=== PATIENT | male | born 1975 | race Caucasian/White ===

== ENCOUNTER 2018-02-17 06:18 | Day surgery (SDC) | payer OTHER ==
[2018-02-07 15:15] VITALS: BMI 28.3
[2018-02-17] MEDS ORDERED: DEXAMETHASONE SOD PHOSPHATE/PF 10 MG/ML SDV ONE (07:31)
[2018-02-17] MEDS ORDERED: MIDAZOLAM HCL 2 MG/2 ML SINGLE DOSE VIAL ONE (07:31)
[2018-02-17] MEDS ORDERED: MEPIVACAINE HCL/PF 15 MG/ML ML ONE (07:31)
[2018-02-17] MEDS ORDERED: ROPIVACAINE HCL 0.5% 30ML VIAL ONE (07:32)
[2018-02-17] MEDS ORDERED: BENZOIN/ALOE VERA/STORAX/TOLU 58 ML BOTTLE ONE (07:38)
[2018-02-17] MEDS ORDERED: SUCCINYLCHOLINE CHLORIDE 200 MG/10 ML VIAL ONE (07:48)
[2018-02-17] MEDS ORDERED: PROPOFOL 20 ML ONE ×5 (07:48→09:14)
[2018-02-17] MEDS ORDERED: ONDANSETRON 4 MG/2 ML VIAL ONE (08:03)
[2018-02-17] MEDS ORDERED: DEXAMETHASONE SOD PHOSPHATE 4 MG/1 ML VIAL ONE (08:03)
[2018-02-17] MEDS ORDERED: ceFAZolin SODIUM 1 GM VIAL ONE (08:03)
[2018-02-17] MEDS ORDERED: ONDANSETRON 4 MG/2 ML VIAL IVPUSH PRN (10:32)
[2018-02-17] MEDS ORDERED: oxyCODONE HCL 5 MG TABLET PO PRN ×2 (10:32)
--- NOTE | 2018-02-17 10:37 | PN ---
Progress Note (short form) - Note Progress Note: 42M s/p RIGHT shoulder open Anselmo procedure, Neer Decompression, & rotator cuff repair POD #0. -Pain control: Meloxicam & oxycodone PRN. -Incentive spirometry. -No chemical DVT PPx. -RUE sling. -No RIGHT shoulder ROM. -Daily RIGHT elbow, wrist & hand ROM. -Keep dressing clean & dry. -f/u in [facility] [place] [facility] on 02/23/2018; call for appointment; . Aaron Arroyo MD (Orthopaedic Surgery).
--- NOTE | 2018-02-17 10:38 | OP ---
Operative Note - Note: Operative Date: 02/17/18 Pre-Operative Diagnosis: Right shoulder impingement syndrome Operation: RIGHT shoulder open: 1. Anselmo procedure. 2. Neer Decompression. 3. Rotator cuff repair Findings: Partial thickness, bursal-sided rotator cuff tear Post-Operative Diagnosis: Same as Pre-op Surgeon: Aaron Arroyo Lead Military Analyst: Brijesh Arroyo Anesthesiologist/ACUTE CARE NURSE PRACTITIONER: Brown Vargas Anesthesia: General (Interscalene block) Estimated Blood Loss (mls): 30 Fluid Volume Replaced (mls): 600 Operative Report Dictated: Yes
[2018-02-17] MEDS ORDERED: LACTATED RINGERS SOLUTION 1,000 ML IV SCH (10:45)
--- NOTE | 2018-02-17 10:58 | OP ---
DATE OF OPERATION: DATE OF DICTATION: 02/17/2018 SURGEON: Aaron Arroyo MD BUSINESS DATABASE ANALYST: Brijesh Arroyo MD ANESTHESIA: General. PREOPERATIVE DIAGNOSIS: Right rotator cuff tear with impingement syndrome, shoulder. POSTOPERATIVE DIAGNOSIS: Right rotator cuff tear with impingement syndrome, shoulder. SURGICAL PROCEDURE: 1. Excision arthroplasty clavicle. 2. Acromioplasty and coracoacrominal ligament transection. 3. Repair of chronic rotator cuff tear. POSITION: Beach chair [place] position. DESCRIPTION OF PROCEDURE: The right upper extremity was prepped routinely with Betadine scrub solution, wiped off with alcohol, DuraPrep applied. A free drape was applied. The scalene block had been performed prior to this accordingly. The line between the tip of the coracoid and tip of the acromion was identified. Incision made exactly in this line. Hemostasis was achieved down to the layer of muscle of deltoid. The superior surface of the clavicle was freed of soft tissue, a Holmann placed behind this and a Holmann placed anteriorly to lift the AC joint appropriately. The AC joint was readily noted and incised using a 15 blade. Using a beveled saw cut, the excision arthroplasty was then completed taking out about a cm of distal lateral clavicle. All soft tissue left behind just the bony component removed. At that point, the deltoid muscle was identified. Placing a Holmann under the deltoid so there was minimal splitting of the deltoid, the deltoid was lifted. A peanut was utilized to develop a plane superficial to the CA ligament. CA ligament from distal to proximal was identified. A small incision was made into this ligament with a 15 blade and a Redmond freer type instrument placed under the ligament and the ligament transected entirely along its entire length from the distal border to the proximal band adherent tissue right into the deep aspect of the shoulder joint. This enabled access to the subacromial space, which was very tight. A blunt Holmann was placed in the humeral head and the tip on the undersurface of the acromion. This kept the humeral head and rotator cuff out of harm's way, and an oscillating saw was utilized to excise a small wedge of very prominent acromion, which was digging into the appropriate soft tissue mass covering the humeral head. A small wafer of tissue was then resected on the undercut surface as well. Once this had been performed, the tissues were lavaged and the rotator cuff identified. A small tear was noted. This was a firmly degenerative-type tear. Some of the tissue was excised and then two 2-0 Vicryl sutures were placed to give a watertight seal to the rotator cuff. The wound was thoroughly lavaged. Closure as follows: Deltoid and capsule 1-0 Vicryl, subcutaneous 1-0 and 2-0 Vicryl, skin 3-0 Monocryl with Steri-Strips. No complications. MD DAGO [id number]
[2018-02-17 12:04] VITALS: TEMP 97.6
[2018-02-17 12:06] VITALS: BP 123/72; PULSE 55
== END 2018-02-17 12:05 | disposition home or self-care (01) ==
LOC: FASU 06:18
PROVIDERS: ATTEND Orthopaedic Surgery Orthopaedic Surgery of the Spine
PROC: 0RBG0ZZ Excision of Right Acromioclavicular Joint, Open Approach (ICD-10-PCS; 2018-02-17)
PROC: 0PB90ZZ Excision of Right Clavicle, Open Approach (ICD-10-PCS; 2018-02-17)
PROC: 0LQ10ZZ Repair Right Shoulder Tendon, Open Approach (ICD-10-PCS; principal; 2018-02-17 08:00)
DX: M75.101 Unspecified rotator cuff tear or rupture of right shoulder, not specified as traumatic (principal); M75.41 Impingement syndrome of right shoulder